=== PATIENT | male | born 1955 | race Caucasian/White ===

== ENCOUNTER 2021-09-25 17:12 | Inpatient (IN) | payer OTHER, MEDICARE, SELFPAY ==
--- NOTE | ~2021-09-25 | MR_ITS ---
EXAMINATION: MR abdomen wo/w con INDICATION: Possible pancreatic mass TECHNIQUE: Coronal SSFSE ARC, WATER:coronal LAVA-FLEX, Coronal 2D FIESTA FatSat, Axial SSFSE BH ARC, Axial 3D DualEcho BH, Axial SSFSE-IR, Axial DWI b=500, Axial 2D FIESTA FatSat, pre and dynamic postco ntrast Axial LAVA ARC, postcontrast Coronal In and Opposed phase LAVA FLEX COMPARISON: CT, 09/25/2021 CONTRAST: Multihance, 11 cc FINDINGS: There is an approximately 2.7 cm hypoenhancing mass in the tail of the pancreas. There is n odularity of the liver surface. A large volume of ascites is present. The spleen, gallbladder, and ad renal glands are normal. There are multiple cysts of the kidneys. No pathologically enlarged abdomina l lymph nodes are identified. There are no dilated loops of bowel. IMPRESSION: 1. 2.7 cm hypoenhancing mass in the tail of the pancreas concerning for adenocarcinoma. Differential includes focal pancreatitis in the proper clinical setting. 2. Cirrhosis with a large volume of ascites. Reviewed, dictated and finalized at location B. IMPRESSION: 1. 2.7 cm hypoenhancing mass in the tail of the pancreas concerning for adenoca rcinoma. Differential includes focal pancreatitis in the proper clinical settin g. 2. Cirrhosis with a large volume of ascites.
--- NOTE | ~2021-09-25 | CT_ITS ---
EXAMINATION: CT abdomen pelvis w con DATE: 09/25/2021 20:04 INDICATION: liver cirrhosis, ascites TECHNIQUE: Computed tomography (CT) of the abdomen and pelvis was performed with 100 mL Omnipaque-300 intravenous contrast. Automated exposure control and iterative reconstruction technique were employe d. The dose-length product was 475.75 mGy-cm. COMPARISON: None. FINDINGS: Lower thorax: Bibasilar scar/atelectasis. Coronary artery calcification. Liver: Fatty infiltrated liver, nodular border, coarse parenchyma. Abdominal varices. Biliary/Gallbladder: Gallbladder is normal. No bile duct dilation. Pancreas: Pancreatic atrophy. Focal low density in the dilated pancreatic tail. Narrowing of the jessica cent splenic vein. Spleen: Enlarged. Adrenals:No mass. Kidneys: No mass, stone, or hydronephrosis. GI tract: Thickened, hyperemic gastric wall involving the fundus and portions of the gastric body. No small or large bowel dilation. Normal appendix. Diverticulosis without diverticulitis. Mesentery/Peritoneum: Diffuse omental thickening. Large volume ascites. Peritoneal enhancement, most evident in the deep pelvis. Retroperitoneum: No mass. Atherosclerotic abdominal aortic and/or arterial calcifications. Pelvis: Pelvic organs are within normal limits. Soft Tissues: Soft tissues and body wall unremarkable. Bones: No acute osseous finding. IMPRESSION: 1. Infiltrated omental fat (also known as omental cake ), most commonly seen with gastric or colonic metastases, less often with tuberculosis peritonitis, lymphoma, or malignant peritoneal mesothelioma . Gastric findings in this patient may be related to lack of distention or infiltration by tumor. 2. Large volume ascites with peritoneal inflammation. 3. Focal low density in the pancreatic tail, may represent acute or resolving pancreatitis (perhaps w ith developing pseudocyst). In the absence of such findings or history, consider nonemergent but time ly MRI of the pancreas to exclude a pancreatic mass. 4. Focal narrowing of the splenic vein may reflect chronic nonocclusive thrombosis versus artifact fr om adjacent pancreatic inflammation or mass. 5. Cirrhosis with portal hypertension. Reviewed, dictated and finalized at location K. IMPRESSION: 1. Infiltrated omental fat (also known as omental cake ), most commonly seen w ith gastric or colonic metastases, less often with tuberculosis peritonitis, ly mphoma, or malignant peritoneal mesothelioma. Gastric findings in this patient may be related to lack of distention or infiltration by tumor. 2. Large volume ascites with peritoneal inflammation. 3. Focal low density in the pancreatic tail, may represent acute or resolving p ancreatitis (perhaps with developing pseudocyst). In the absence of such findin gs or history, consider nonemergent but timely MRI of the pancreas to exclude a pancreatic mass. 4. Focal narrowing of the splenic vein may reflect chronic nonocclusive thrombo sis versus artifact from adjacent pancreatic inflammation or mass. 5. Cirrhosis with portal hypertension.
--- NOTE | ~2021-09-25 | US_ITS ---
EXAMINATION: US paracentesis abd w/image DATE: 09/26/2021 10:07 CDT INDICATION: Ascites. TECHNIQUE: The procedure for an ultrasound-guided paracentesis was discussed with the patient. Risks and benefits were detailed, including risks of bleeding, infection, and pain. The patient verbalize d understanding and agreed to proceed following written consent. A time and out was performed to verify patient's name, date of , and type of procedure. The lef t lower quadrant of the abdomen was prepped and draped in usual manner. 1% lidocaine was used for lo dedra anesthesia. A catheter was inserted into the left lower quadrant under ultrasound guidance into the ascitic fluid. The fluid was removed with vacuum assistance. All needles were removed. The patient tolerated the procedure without immediate complication. FINDINGS: Limited images of the abdomen demonstrates a large amount of ascites. Approximately 5000 c c of yellowish liquid was removed. IMPRESSION: 1. Successful ultrasound-guided paracentesis, with removal of approximately 5000 cc of fluid. Reviewed, dictated and finalized at location A. IMPRESSION: 1. Successful ultrasound-guided paracentesis, with removal of approximately 50 00 cc of fluid.
[2021-09-25 17:28] VITALS: BP 124/85; PULSE 119; RESP 20; O2SAT 93
--- NOTE | 2021-09-25 17:48 | ECG_ITS ---
Measurements Intervals [place] Rate: 111 P: 61 PA: 164 QRS: 56 QRSD: 90 T: 49 QT: 342 QTc: 466 Interpretive Statements SINUS TACHYCARDIA LOW QRS VOLTAGE IN PRECORDIAL LEADS CANNOT RULE OUT SEPTAL INFARCT, AGE INDETERMINATE BORDERLINE ST-T WAVE ABNORMALITY- ANT/INF LEADS ABNORMAL ECG Electronically Signed On 09-25-2021 21:11:02 CDT by Pedro Galdamez D.O.
--- NOTE | 2021-09-25 17:59 | ED.ABDPAIN ---
HPI - Abdominal Pain General Chief Complaint: Abdominal Pain Stated Complaint: acities, weakness, decreased PO intake Time Seen by Provider: 09/25/21 17:37 Source: patient Mode of arrival: ambulatory Limitations: no limitations History of Present Illness HPI narrative: 66 years old white male came from home with his 2 daughters complaining of gradual increase distention of the abdomen over the last 4 weeks. Patient also complaining of difficulty urinating and defecating started at the same time. Patient feels irritable and crampy. History of liver cirrhosis secondary to alcoholism, declined to be on the list for liver transplant at [place]. Also history of hepatitis C, patient is DNR. History of diabetes, hyperlipidemia, COPD, tobacco use and marijuana daily. Last alcohol intake 4 weeks ago. Patient was seen at [facility] numerous of time for the same problem and would like to go there Related Data Allergies Allergy/AdvReac Type Severity Reaction Status Date / Time Penicillins Allergy Anaphylaxis Verified 09/25/21 17:37 Review of Systems Review of Systems: All systems reviewed & are unremarkable except as noted in HPI and below Exam Narrative: General appearance: Well-developed, well-nourished, cachectic Skin: Normal color Head: Normocephalic, nontraumatic Eyes: Clear conjunctiva ENT: Oropharynx normal, ears normal, nose normal Neck: Supple, nontender Chest and respiratory: Diffuse tenderness of the chest bilaterally mainly on the left side, no bruises, no swelling or rash Heart: Tachycardia Abdomen: Distended, diffusely tender, ascites, quiet bowel sounds Vascular: Normal peripheral pulses, normal capillary refill. Musculoskeletal: Normal range of motion, nontender back Neurologic: Alert and oriented ?3, [employer] is normal as tested, no gross motor deficit Course Reevaluation(s) Reevaluation #1: Patient would like to go out to smoke, agreed with the nicotine patch. Initially patient declined to have any abdominal centesis, later agreed to be admitted for that procedure. Daughters at the bedside Date: 09/25/21 Time: 20:48 Consultations Consultation #1: [facility], no bed available at this time Date: 09/25/21 Time: 20:47 Vital Signs Vital signs: Vital Signs Pulse Rate 119 H 09/25/21 17:28 Respiratory Rate 20 09/25/21 17:28 Blood Pressure 124/85 09/25/21 17:28 Pulse Oximetry 93 09/25/21 17:28 Oxygen Delivery Room Air 09/25/21 17:28 Pulse Rate 119 H 09/25/21 17:28 Respiratory Rate 20 09/25/21 17:28 Blood Pressure 124/85 09/25/21 17:28 Pulse Oximetry 93 09/25/21 17:28 Oxygen Delivery Room Air 09/25/21 17:28 MDM - Abdominal Pain Differential Diagnosis Differential diagnosis: Likely abdominal pain, acute appendicitis, constipation, pancreatitis and small bowel obstruction Lab Data Result diagrams: 09/25/21 18:10 09/25/21 18:11 Labs: Lab Results 09/25/21 09/25/21 09/25/21 Range/Units 18:10 18:11 18:11 WBC 11.3 H (4.5-10.0) K/mm3 RBC 4.28 L (4.6-6.20) M/mm3 Hgb 13.1 L (14.0-18.0) g/dL Hct 41.0 L (42.0-52.0) % MCV 95.8 (80-100) fl MCH 30.6 (26-34) pg MCHC 32.0 (32-36) g/dl RDW 17.8 H (11.5-14.5) % Plt Count 346 (150-375) k/mm3 MPV 10.3 (7.4-10.4) fl Immature Gran % (Auto) 3.2 H (0-0.5) % Neut % (Auto) 79.2 H (45.5-73.1) % Lymph % (Auto) 7.5 L (18.3-44.2) % Lane % (Auto) 9.4 H (2.6-8.5) % Eos % (Auto) 0.2 (0-4.4) % Baso % (Auto) 0.5 (0.2-1.2) % Lymph # (Auto) 0.85 L (0.9-3.2) K/mm3 Lane # (Auto) 1.1 H (0.1-0.6) K/mm3 Eos # (Auto) 0.0 (0-0.3) K/mm3 Baso # (Auto) 0.1
[2021-09-25 18:39] LABS: Basophils Absolute Auto 0.1 K/mm3 (0.0-0.1); Basophils Percent Auto 0.5 % (0.2-1.2); Eosinophils Percent Auto 0.2 % (0-4.4); Hemoglobin 13.1 g/dL (14.0-18.0); Immature Granulocyte Absolute 0.36 K/mm3 (0.00-0.031); Immature Granulocyte Percent A 3.2 % (0-0.5); Lymphocytes Absolute Auto 0.85 K/mm3 (0.9-3.2); Lymphocytes Percent Auto 7.5 % (18.3-44.2); Mean Corpuscular Hemoglobin 30.6 pg (26-34); Mean Corpuscular Volume 95.8 fl (80-100); Mean Platelet Volume 10.3 fl (7.4-10.4); Monocytes Absolute Auto 1.1 K/mm3 (0.1-0.6); Monocytes Percent Auto 9.4 % (2.6-8.5); Neutrophils Percent Auto 79.2 % (45.5-73.1); Nucleated Red Blood Cells Perc 0.2 % (0.0-0.2); Platelet Count Result 346 k/mm3 (150-375); Red Blood Count 4.28 M/mm3 (4.6-6.20); Red Cell Distribution Width 17.8 % (11.5-14.5); White Blood Count 11.3 K/mm3 (4.5-10.0)
[2021-09-25 18:49] LABS: INR 1.1; Prothrombin Time 13.6 Seconds (11.1-14.7)
[2021-09-25 18:49] LABS: Ethanol < 10 mg/dL (<10)
[2021-09-25] MEDS: ONDANSETRON INJ 4 MG/2 ML VIAL IV PUSH (18:59)
[2021-09-25 19:08] LABS: Appearance Urine Clear (Clear); Bilirubin Urine 2+ (Negative); Blood Urine Negative (Negative); Color Urine Yellow (Yellow); Glucose Urine UA Negative (Negative); Ketones Urine 2+ mg/dL (Negative); Leukocyte Esterase Ur Negative LEU/UL (Negative); Nitrate Urine Negative (Negative); Protein Urine Negative (Negative); pH Urine 5.5 (5.0-9.0)
[2021-09-25 19:19] LABS: Hyaline Casts Urine 20-29 /lpf; Mucus Urine Rare /lpf; RBC Urine 0-2 /hpf (0-2); Squamous Epithelial Cell Urine Rare /hpf (Few); Transitional Epi Cells Urine Rare /hpf (None Seen)
[2021-09-25 19:21] LABS: Add Urine Microscopic? YES
[2021-09-25 19:30] LABS: Ammonia < 9 umol/L (9-30)
[2021-09-25 19:37] LABS: Alanine Aminotransferase 14 U/L (6-50); Albumin Level 3.5 g/dL (3.5-5.1); Alkaline Phosphatase 161 U/L (38-126); Aspartate Amino Transferase 47 U/L (17-59); Bilirubin,Total 0.7 mg/dL (0.2-1.3); Blood Urea Nitrogen 46 mg/dL (9-20); Calcium 8.4 mg/dL (8.4-10.2); Carbon Dioxide > 40 mmol/L (22-30); Chloride 80 mmol/L (98-107); Estimated CRCL calculation 60 ml/min; Estimated Glomerular Filt Rate > 60; Glucose 151 mg/dL (65-110); Lipase 30 U/L (23-300); Potassium 3.3 mmol/L (3.4-5.0); Sodium 129 mmol/L (137-145)
[2021-09-25 20:30] VITALS: BP 118/80; PULSE 104; RESP 20; O2SAT 91
--- NOTE | 2021-09-25 21:07 | PM.IMHP ---
H&P: HPI History of Present Illness Date/Time: 09/25/21 21:07 Chief Complaint: Abdominal pain Narrative: Patient is a 66-year-old male with past medical history of alcohol cirrhosis presents to ED with complaints of abdominal pain. Patient states he has has end-stage liver disease and has not had paracentesis in the past. He understands poor prognosis. He follows at the [facility] for his medical care. Patient is DNR. He states he stopped drinking alcohol 4 weeks ago. He still smokes 1.5 packs per. In the ED: Abdominal CT scan shows significant ascites and concern for possible pancreatic tail mass and omental caking suggestive of cancer. Ammonia level low less than 9, alcohol less than 10, mild electrolyte abnormalities sodium 129 potassium 3.3. Patient is found to have sinus tachycardia rate 119. With his abdominal ascites, patient likely had relief from paracentesis. Patient is being admitted for acute decompensation of alcohol liver cirrhosis with ascites, has been dyspnea patient be admitted for 2-3 days for ascites workup. Review of Systems Review of Systems: Constitutional: No Fever, No Chills, No Night Sweats, No Fatigue, endorses malaise ENT/Mouth: No Hearing Changes, No Ear Pain, No Nasal Congestion, No Sinus Pain, No Hoarseness, No sore throat, No Rhinorrhea, No Swallowing Difficulty Eyes: No Eye Pain, No Redness, No Vision Changes Cardiovascular: No Chest Pain, No Palpitations, No Dyspnea on Exertion, No Orthopnea, No Claudication, No Edema Respiratory: No Cough, No Sputum, No Wheezing, No Shortness of Breath Gastrointestinal: Endorses abdominal pain and discomfort, nausea. He denies diarrhea constipation. Genitourinary: No Dysuria, No Urinary Frequency, No Hematuria, No Urinary Incontinence, No Urgency Musculoskeletal: No Arthralgias, No Myalgias, No Joint Swelling, No Joint Stiffness, No Back Pain Skin: No Skin Lesions, No Pruritis, No Hair Changes Neuro: No Weakness, No Numbness, No Paresthesias, No Loss of Consciousness, No Syncope, No Dizziness, No Headache Psych: No Anxiety/Panic, No Depression, No Insomnia Heme: No Bruising, No Bleeding Lymph: No Adenopathy Endocrine: No Polyuria, No Polydipsia, No Temperature Intolerance [facility] Past Medical History Medical History (Updated 09/25/21 @ 21:09 by Miquel Hale DO) Alcoholic cirrhosis of liver with ascites Nicotine dependence Family History Family History (Updated 09/25/21 @ 21:09 by Miquel Hale DO) Mother Breast cancer Father Old age Social History Social History (Updated 09/25/21 @ 21:10 by Miquel Hale DO) Social History: Patient lives with his girlfriend, sometimes he drives otherwise depends on his family. Daughter lives nearby. Smoking packs per day: 1.5 Smoking cigarettes per day: 30.0 Smoking status: Current every day smoker Alcohol intake: former Substance use: never Meds Home Medications and Allergies Allergies Allergy/AdvReac Type Severity Reaction Status Date / Time Penicillins Allergy Anaphylaxis Verified 09/25/21 17:37 Vital Signs Vital Signs - 24 hr 09/25/21 17:28 Pulse Rate 119 H Respiratory Rate 20 Blood Pressure 124/85 Pulse Oximetry 93 Oxygen Delivery Room Air Exam Narrative: - GENERAL: Pleasant chronically ill appearing male no acute distress. - EYES: EOMI. Anicteric. - HENT: Moist mucous membranes. Poor dentition. - LUNGS: Clear to auscultation bilaterally, no wheezing, rhonchi, or rales. - CARDIOVASCULAR: Regular rate and rhythm. No murmur. No JVD. - ABDOMEN: Semi-soft, distended, tender on deep palpation. Fluid wave positive - EXTREMITIES: No edema. Very thin extremities. Peripheral pulses 2+. Non-tender. - NEUROLOGIC: No focal neurological deficits. CN II-XII grossly intact. - PSYCHIATRIC: Awake, Alert and oriented x 3. Appropriate mood and affect. - SKIN: Bruising on upper extremities - LYMPH: No cervical lymphadenopathy. H&P: Results Lab
[2021-09-25 21:09] LABS: SARS-CoV-2 RNA PCR Negative
[2021-09-25 21:16] VITALS: BP 117/68; PULSE 100; RESP 20; TEMP 36.6; O2SAT 80
--- NOTE | 2021-09-25 21:16 | PC.NURSE ---
Attempted to do admission, assessment, and med pass on patient. Patient was not cooperative with assessment and only participated in small portion of admission. Assessment charted is based on what patient allowed. This patient was unable to give a complete medical history due to being unsure or just not answering the questions. Once meds were acknowledged, this nurse went into the room to try and administer them, but patient refused and just wants to be left alone . Patient finally agreed to allowing fluids to be hung and continued to refuse everything else. Educated patient on importance of taking medication, but none was given.
[2021-09-25] MEDS: SODIUM CHLORIDE 0.9% IV 1,000 ML 999 ML IV CONT (21:31)
[2021-09-25 21:49] VITALS: BP 120/83; PULSE 106; RESP 16; O2SAT 92
--- NOTE | 2021-09-25 21:51 | PC.NURSE ---
patient being tranferred to floor with IVF infusing
[2021-09-25 22:13] VITALS: BMI 19.8
--- NOTE | 2021-09-25 22:25 | ADMGEN ---
This patient, Zeeshan Mulligan, was admitted to [facility] Room 328-01. Patient/family oriented to hospital policies and general routines including ID bracelet, bed and alarms, visiting hours, pain management, procedures, bathroom and other care routines, personal items, smoking policy, room service/diet, and visiting hours. Information on how to activate the Rapid Response Team has been discussed. Patient/Family are encouraged to report perceived risks to care and to ask questions if they do not understand what they are told or what they should do.
[2021-09-25 23:35] VITALS: BMI 19.4
[2021-09-26] VITALS: BP 117/68; PULSE 100; RESP 20; TEMP 36.6; O2SAT 80
[2021-09-26] MEDS: SODIUM CHLORIDE 0.9% IV 1,000 ML 100 ML IV CONT (00:40)
[2021-09-26 06:00] VITALS: BP 112/73; PULSE 96; RESP 12; TEMP 36.1; O2SAT 91
[2021-09-26 07:05] LABS: Blood Urea Nitrogen 34 mg/dL (9-20); Calcium 7.6 mg/dL (8.4-10.2); Carbon Dioxide > 40 mmol/L (22-30); Chloride 83 mmol/L (98-107); Estimated CRCL calculation 65 ml/min; Estimated Glomerular Filt Rate > 60; Glucose 98 mg/dL (65-110); Potassium 2.9 mmol/L (3.4-5.0); Sodium 131 mmol/L (137-145)
[2021-09-26 08:00] VITALS: O2SAT 93
[2021-09-26 08:08] LABS: Glucose Point of Care 101 mg/dl (65-105)
--- NOTE | 2021-09-26 09:48 | PC.NURSE ---
Patient transported to /S for Paracentesis around 0920 via stretcher
[2021-09-26] MEDS: PANTOPRAZOLE 40 MG TABLET PO (10:29)
[2021-09-26] MEDS: FUROSEMIDE INJ 40 MG/4 ML VIAL IV PUSH (10:29)
[2021-09-26] MEDS: LACTULOSE 20 GM/30 ML UDC PO ×3 (10:29→17:41)
[2021-09-26] MEDS: POTASSIUM CHLORIDE 20 MEQ TABLET.ER PO ×2 (10:30→16:30)
[2021-09-26] MEDS: NICOTINE (*PBKC) 21 MG PATCH 1 PATCH TRANSDERM (10:30)
--- NOTE | 2021-09-26 11:11 | WPDGICN ---
Assessment and Plan Assessment and plan (1) Alcoholic cirrhosis of liver with ascites: Code(s): K70.31 - Alcoholic cirrhosis of liver with ascites Status: Acute Assessment and Plan: he has been a chronic abuser of alcohol and also has a history of hepatitis C As well. He has been told in the past at the [facility] that he has cirrhosis. He states he has not seen anybody about this in the last 3 years, that is his fault (2) Hepatitis C: Code(s): B19.20 - Unspecified viral hepatitis C without hepatic coma Status: Acute Assessment and Plan: this was treated he states with oral medications and the 1 blood test he had afterwards was said to be good he admits that he failed follow-up after that (3) Alcohol abuse: Code(s): F10.10 - Alcohol abuse, uncomplicated Status: Acute Assessment and Plan: he has been truly uses alcohol but states that he stopped a few weeks ago. He began feeling poorly Nevertheless will need to watch for possible signs of of withdrawal syndrome. (4) Pancreatic mass: Code(s): K86.89 - Other specified diseases of pancreas Status: Acute Assessment and Plan: CT today shows a possible mass in the tail of his pancreas. It also shows omental caking suggesting possible peritoneal malignancy I have ordered CEA and also CA 19-9. Is my understanding that the patient is DNR. (5) Diabetes: Code(s): E11.9 - Type 2 diabetes mellitus without complications Status: Acute Assessment and Plan: he has on metformin. He also takes insulin. He states he has not followed up with his physicians at the [facility] for several years, but his last hospitalization there was because of problems with his diabetes Plan we will await results of paracentesis which has just been done. Cytology will be done of course. I will also order tumor markers including CEA and CA 19-9. GI Consult Note Consult date/time: 09/26/21 11:11 Reason for consult: Liver disease, ascites, cirrhosis, hepatitis C HPI: Zeeshan Mulligan is a 66 year old male who presents to the emergency room because of abdominal pain and distension. The patient is known to have cirrhosis. He was found to have a large amount of ascites on the CT scan. He states that he has never had a paracentesis before. He has been told that he has cirrhosis. He usually gets his care at the [facility], but admits that he has not followed up with them for about 3 years. His last hospitalization there was for diabetes. He states that [place] [address] [place]. He was a heavy drinker of alcohol but states he quit a few weeks ago. He does smoke 1.5 packs of cigarettes per day. He states that he was treated for his hepatitis-C and went back and was told that he was cleared but he failed to follow-up after that. Review of Systems Review of Systems: All systems reviewed & are unremarkable except as noted in HPI and below PMFSH Past Medical History Medical History Alcoholic cirrhosis of liver with ascites Nicotine dependence Family History Family History Mother Breast cancer Father Old age Social History Social History Social History: Patient lives with his girlfriend, sometimes he drives otherwise depends on his family. Daughter lives nearby. Smoking packs per day: 1.5 Smoking cigarettes per day: 30.0 Smoking status: Current every day smoker Tobacco type: cigarettes Second hand tobacco smoke exposure: No Alcohol intake: current Substance use: current Substance use type: marijuana Other substance usage details: Very little marijuana when needed for pain Last use: Unknown Spiritual care concerns: No M
[2021-09-26 11:12] LABS: Carcinoembryonic Antigen 2.9 ng/mL (0.0-3.0)
[2021-09-26 11:58] LABS: Appearance Peritoneal Fluid Clear (Clear); Color Peritoneal Fluid Yellow (Colorless); Lymphocytes Peritoneal Fluid 43 %; Macrophages Peritoneal Fluid 35 %; Mesothelial Cells Peritoneal Fluid 2 %; Monocytes Peritoneal Fluid 2 %; Neutrophils Peritoneal Fluid 18 % (0-25); Nucleated Cells Peritoneal Flu 1023 /uL (0-500); RBC Peritoneal Fluid 664 /uL (0-100000); Source Peritoneal Fluid Peritoneal Fluid
[2021-09-26 12:50] LABS: Glucose Point of Care 127 mg/dl (65-105)
--- NOTE | 2021-09-26 12:54 | PM.IMPN ---
Progress Note: A&P Assessment and Plan (1) Pancreatic mass: Code(s): K86.89 - Other specified diseases of pancreas Status: Acute (2) Portal hypertension syndrome: Code(s): K76.6 - Portal hypertension Status: Acute (3) Alcoholic cirrhosis of liver with ascites: Code(s): K70.31 - Alcoholic cirrhosis of liver with ascites Status: Acute Plan # alcohol cirrhosis with ascites -Order placed for ultrasound-guided paracentesis to be done in AM -ascites labs ordered including cytology. -pain control: As needed Tylenol, [place], morphine -patient states he stepped drink alcohol for 4 weeks, no need for CIWA protocol at this time. alcohol level <10 -patient states he has not had paracentesis in the past he was told he may need it. With concerns of malignancy on the CT scan will obtain cytology -will start diuretics, blood pressure is normotensive # abnormal CT scan -patient has incidental finding of distal pancreatic tail lesion, recommendation is for follow-up with MRI of pancreas to rule out mass. Will do so outpatient after paracentesis done -also omental caking found on imaging, concern for malignancy -lipase normal # hypokalemia -potassium 3.3 likely secondary to alcohol abuse and cirrhosis -repleted with 40 mEq potassium chloride # other chronic conditions -nicotine dependence: Nicotine patch available Diet: Regular, NPO midnight for paracentesis DVT prophylaxis: SCDs (no chemoprophylaxis for paracentesis) Code status: Do not resuscitate Disposition: Admission inpatient, likely 2-4 days for paracentesis and cirrhosis workup Additional Plan 09/26/2021 interval history: patient is a 66-year-old male with history of chronic alcohol abuse, hepatitis C for which he was treated at 1 time but 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 and added spironolactone 12.5 mg b.i.d. and will monitor, patient also complained has not had a BM in several will start the patient on lactulose 20 mg q.8 and monitor, will follow-up on paracentesis and the labs and further recommendation to follow. Subjective Date/time seen: 09/26/21 12:54 Chief Complaint: Abdominal pain Narrative: HPI-Patient is a 66-year-old male with past medical history of alcohol cirrhosis presents to ED with complaints of abdominal pain.? Patient states he has has end-stage liver disease and has not had paracentesis in the past.? He understands poor prognosis.? He follows at the [place] for his medical care.? Patient is DNR.? He states he stopped drinking alcohol 4 weeks ago.? He still smokes 1.5 packs per. In the ED: Abdominal CT scan shows significant ascites and concern for possible pancreatic tail mass and omental caking suggestive of cancer.? Ammonia level low less than 9, alcohol less than 10, mild electrolyte abnormalities sodium 129 potassium 3.3.? Patient is found to have sinus tachycardia rate 119.? With his abdominal ascites, patient likely had relief from paracentesis.? Patient is being admitted for acute decompensation of alcohol liver cirrhosis with ascites, has been dyspnea patient be admitted for 2-3 days for ascites workup. 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 and added spironolactone 12.5 mg b.i.d. and will monitor, patient also complained has not had a BM in sev
[2021-09-26 14:05] VITALS: BP 111/78; PULSE 91; RESP 16; TEMP 36.1; O2SAT 96
[2021-09-26 17:30] LABS: Glucose Point of Care 148 mg/dl (65-105)
[2021-09-26] MEDS: POTASSIUM CHLORIDE 20 MEQ TABLET 40 MEQ PO (17:40)
[2021-09-26] MEDS: SPIRONOLACTONE 12.5 MG TABLET PO (17:40)
[2021-09-26] MEDS: FUROSEMIDE 40 MG TABLET PO (17:40)
[2021-09-26 20:51] LABS: Lactate Dehydrogenase 435 U/L (313-618)
[2021-09-26] MEDS: INSULIN GLARGINE (*BKC) 100 UNITS/ML 15 UNITS SUB-Q (21:41)
[2021-09-26] MEDS: traZODone HCL 25 MG TABLET PO (21:41)
[2021-09-26 21:59] LABS: Glucose Point of Care 172 mg/dl (65-105)
[2021-09-26 22:00] VITALS: BP 121/78; PULSE 97; RESP 16; TEMP 37.1; O2SAT 96
[2021-09-27 06:00] VITALS: BP 117/87; PULSE 99; RESP 18; TEMP 36.4; O2SAT 94
[2021-09-27 07:28] LABS: Hemoglobin 12.5 g/dL (14.0-18.0); Mean Corpuscular HGB Conc 33.8 g/dl (32-36); Mean Corpuscular Hemoglobin 31.3 pg (26-34); Mean Corpuscular Volume 92.5 fl (80-100); Mean Platelet Volume 9.7 fl (7.4-10.4); Platelet Count Result 338 k/mm3 (150-375); Red Cell Distribution Width 16.9 % (11.5-14.5); White Blood Count 13.8 K/mm3 (4.5-10.0)
[2021-09-27 07:44] LABS: Glucose Point of Care 112 mg/dl (65-105)
[2021-09-27 07:58] LABS: Alanine Aminotransferase 12 U/L (6-50); Albumin Level 2.8 g/dL (3.5-5.1); Alkaline Phosphatase 162 U/L (38-126); Aspartate Amino Transferase 44 U/L (17-59); Bilirubin,Total 0.4 mg/dL (0.2-1.3); Blood Urea Nitrogen 23 mg/dL (9-20); Calcium 7.7 mg/dL (8.4-10.2); Carbon Dioxide > 40 mmol/L (22-30); Chloride 86 mmol/L (98-107); Estimated CRCL calculation 73 ml/min; Estimated Glomerular Filt Rate > 60; Glucose 116 mg/dL (65-110); Magnesium 1.9 mg/dL (1.6-2.3); Potassium 3.4 mmol/L (3.4-5.0); Sodium 129 mmol/L (137-145)
[2021-09-27] MEDS: FUROSEMIDE 40 MG TABLET PO ×2 (08:55→16:54)
[2021-09-27] MEDS: SPIRONOLACTONE 12.5 MG TABLET PO ×2 (08:55→16:54)
[2021-09-27] MEDS: PANTOPRAZOLE 40 MG TABLET PO (08:56)
[2021-09-27] MEDS: POTASSIUM CHLORIDE 20 MEQ TABLET.ER PO ×2 (08:56→16:54)
[2021-09-27] MEDS: LACTULOSE 20 GM/30 ML UDC PO ×3 (08:56→16:54)
[2021-09-27] MEDS: NICOTINE (*PBKC) 21 MG PATCH 1 PATCH TRANSDERM (08:56)
[2021-09-27 10:12] VITALS: PULSE 87; O2SAT 94
[2021-09-27] MEDS: CLINDAMYCIN 600 MG/D5W 50 ML 600 MG/50 ML PIGGYBACK 100 MG IVPB (11:12)
[2021-09-27 11:44] LABS: Glucose Point of Care 175 mg/dl (65-105)
[2021-09-27 14:00] VITALS: BP 109/76; PULSE 87; RESP 18; TEMP 36.1; O2SAT 93
--- NOTE | 2021-09-27 14:06 | PM.IMPN ---
Progress Note: A&P Assessment and Plan (1) Pancreatic mass: Code(s): K86.89 - Other specified diseases of pancreas Status: Acute (2) Portal hypertension syndrome: Code(s): K76.6 - Portal hypertension Status: Acute (3) Alcoholic cirrhosis of liver with ascites: Code(s): K70.31 - Alcoholic cirrhosis of liver with ascites Status: Acute Plan # alcohol cirrhosis with ascites -Order placed for ultrasound-guided paracentesis to be done in AM -ascites labs ordered including cytology. -pain control: As needed Tylenol, [place], morphine -patient states he stepped drink alcohol for 4 weeks, no need for CIWA protocol at this time. alcohol level <10 -patient states he has not had paracentesis in the past he was told he may need it. With concerns of malignancy on the CT scan will obtain cytology -will start diuretics, blood pressure is normotensive # abnormal CT scan -patient has incidental finding of distal pancreatic tail lesion, recommendation is for follow-up with MRI of pancreas to rule out mass. Will do so outpatient after paracentesis done -also omental caking found on imaging, concern for malignancy -lipase normal # hypokalemia -potassium 3.3 likely secondary to alcohol abuse and cirrhosis -repleted with 40 mEq potassium chloride # other chronic conditions -nicotine dependence: Nicotine patch available Diet: Regular, NPO midnight for paracentesis DVT prophylaxis: SCDs (no chemoprophylaxis for paracentesis) Code status: Do not resuscitate Disposition: Admission inpatient, likely 2-4 days for paracentesis and cirrhosis workup Additional Plan 09/26/2021 interval history: patient is a 66-year-old male with history of chronic alcohol abuse, hepatitis C for which he was treated at 1 time but did not follow-up with fitter tacker, patient states he has not seen any physician for last 3 years presented emergency department with complaint of abdominal pain and swelling patient is found to have liver cirrhosis and ascites, paracentesis is scheduled for today, being diuresed with IV Lasix 40 mg b.i.d. and added spironolactone 12.5 mg b.i.d. and will monitor, patient also complained has not had a BM in several will start the patient on lactulose 20 mg q.8 and monitor, will follow-up on paracentesis and the labs and further recommendation to follow. 09/27/2021 interval history: patient is a 66-year-old male with history of chronic alcohol abuse, stop drinking 4 weeks ago, hepatitis C for which he was treated at 1 time but did not follow-up with fitter tacker, patient states he has not seen any physician for last 3 years presented emergency department with complaint of abdominal pain and swelling patient is found to have liver cirrhosis and ascites, on 09/26 patient had paracentesis and 5 L was removed discussed with pharmacy id, no concerning for SBP will follow-up on culture, being diuresed with IV Lasix 40 mg b.i.d. and added spironolactone 12.5 mg b.i.d. and will monitor, patient also complained has not had a BM in several days, started the patient on lactulose 20 mg q.8, patient had a BM today will reduce lactulose to once a day, and monitor, will follow-up on paracentesis and the labs and further recommendation to follow. Subjective Date/time seen: 09/27/21 14:06 09/27/2021 interval history: patient is a 66-year-old male with history of chronic alcohol abuse, stop drinking 4 weeks ago, hepatitis C for which he was treated at 1 time but did not follow-up with fitter tacker, patient states he has not seen any physician for last 3 years presented emergency department with complaint of abdominal pain and swelling patient is found to have liver cirrhosis and ascites, on 09/26 patient had paracentesis and 5 L was removed discussed with pharmacy id, no concerning for SBP will follow-up on culture, being diuresed with IV Lasix 40 mg b.i.d. and added spironolactone 12.5 mg b.i.d. and will monitor, patient also complained has
[2021-09-27 16:39] LABS: Glucose Point of Care 119 mg/dl (65-105)
[2021-09-27 20:30] VITALS: PULSE 93; RESP 18; O2SAT 93
[2021-09-27 22:00] VITALS: BP 115/85; PULSE 93; RESP 18; TEMP 36; O2SAT 93
[2021-09-27 22:05] LABS: Glucose Point of Care 136 mg/dl (65-105)
[2021-09-27] MEDS: INSULIN GLARGINE (*BKC) 100 UNITS/ML 15 UNITS SUB-Q (22:06)
[2021-09-27] MEDS: traZODone HCL 25 MG TABLET PO (22:08)
[2021-09-28 05:32] VITALS: BP 103/67; PULSE 95; RESP 17; TEMP 36.7; O2SAT 94
[2021-09-28 07:47] LABS: Glucose Point of Care 105 mg/dl (65-105)
[2021-09-28 08:00] VITALS: BP 115/92; PULSE 89; RESP 20; TEMP 36; O2SAT 95
[2021-09-28 08:28] LABS: Hematocrit 37.5 % (42.0-52.0); Hemoglobin 12.7 g/dL (14.0-18.0); Mean Corpuscular HGB Conc 33.9 g/dl (32-36); Mean Corpuscular Hemoglobin 30.9 pg (26-34); Mean Corpuscular Volume 91.2 fl (80-100); Mean Platelet Volume 9.3 fl (7.4-10.4); Platelet Count Result 313 k/mm3 (150-375); Red Blood Count 4.11 M/mm3 (4.6-6.20); White Blood Count 17.6 K/mm3 (4.5-10.0)
[2021-09-28 08:37] LABS: Alanine Aminotransferase 11 U/L (6-50); Albumin Level 2.8 g/dL (3.5-5.1); Alkaline Phosphatase 165 U/L (38-126); Anion Gap 6 mmol/L (8-16); Aspartate Amino Transferase 44 U/L (17-59); Bilirubin,Total 0.5 mg/dL (0.2-1.3); Blood Urea Nitrogen 17 mg/dL (9-20); Calcium 7.7 mg/dL (8.4-10.2); Carbon Dioxide 34 mmol/L (22-30); Chloride 87 mmol/L (98-107); Estimated CRCL calculation 68 ml/min; Estimated Glomerular Filt Rate > 60; Glucose 114 mg/dL (65-110); Magnesium 1.8 mg/dL (1.6-2.3); Potassium 3.6 mmol/L (3.4-5.0); Sodium 127 mmol/L (137-145)
[2021-09-28] MEDS: POTASSIUM CHLORIDE 20 MEQ TABLET.ER PO (11:04)
[2021-09-28] MEDS: SPIRONOLACTONE 12.5 MG TABLET PO (11:04)
[2021-09-28] MEDS: FUROSEMIDE 40 MG TABLET PO ×2 (11:05→16:59)
[2021-09-28] MEDS: NICOTINE (*PBKC) 21 MG PATCH 1 PATCH TRANSDERM (11:05)
[2021-09-28] MEDS: LACTULOSE 20 GM/30 ML UDC PO ×3 (11:05→16:59)
[2021-09-28] MEDS: PANTOPRAZOLE 40 MG TABLET PO (11:05)
[2021-09-28 11:27] LABS: Glucose Point of Care 108 mg/dl (65-105)
[2021-09-28 14:00] VITALS: BP 127/85; PULSE 90; RESP 20; TEMP 36.1; O2SAT 90
--- NOTE | 2021-09-28 15:22 | PM.IMPN ---
Progress Note: A&P Assessment and Plan (1) Pancreatic mass: Code(s): K86.89 - Other specified diseases of pancreas Status: Acute (2) Portal hypertension syndrome: Code(s): K76.6 - Portal hypertension Status: Acute (3) Alcoholic cirrhosis of liver with ascites: Code(s): K70.31 - Alcoholic cirrhosis of liver with ascites Status: Acute Plan # alcohol cirrhosis with ascites -Order placed for ultrasound-guided paracentesis to be done in AM -ascites labs ordered including cytology. -pain control: As needed Tylenol, [place], morphine -patient states he stepped drink alcohol for 4 weeks, no need for CIWA protocol at this time. alcohol level <10 -patient states he has not had paracentesis in the past he was told he may need it. With concerns of malignancy on the CT scan will obtain cytology -will start diuretics, blood pressure is normotensive # abnormal CT scan -patient has incidental finding of distal pancreatic tail lesion, recommendation is for follow-up with MRI of pancreas to rule out mass. Will do so outpatient after paracentesis done -also omental caking found on imaging, concern for malignancy -lipase normal # hypokalemia -potassium 3.3 likely secondary to alcohol abuse and cirrhosis -repleted with 40 mEq potassium chloride # other chronic conditions -nicotine dependence: Nicotine patch available Diet: Regular, NPO midnight for paracentesis DVT prophylaxis: SCDs (no chemoprophylaxis for paracentesis) Code status: Do not resuscitate Disposition: Admission inpatient, likely 2-4 days for paracentesis and cirrhosis workup Additional Plan 09/26/2021 interval history: patient is a 66-year-old male with history of chronic alcohol abuse, hepatitis C for which he was treated at 1 time but did not follow-up with pediatric genetic counselor, patient states he has not seen any physician for last 3 years presented emergency department with complaint of abdominal pain and swelling patient is found to have liver cirrhosis and ascites, paracentesis is scheduled for today, being diuresed with IV Lasix 40 mg b.i.d. and added spironolactone 12.5 mg b.i.d. and will monitor, patient also complained has not had a BM in several will start the patient on lactulose 20 mg q.8 and monitor, will follow-up on paracentesis and the labs and further recommendation to follow. 09/27/2021 interval history: patient is a 66-year-old male with history of chronic alcohol abuse, stop drinking 4 weeks ago, hepatitis C for which he was treated at 1 time but did not follow-up with pediatric genetic counselor, patient states he has not seen any physician for last 3 years presented emergency department with complaint of abdominal pain and swelling patient is found to have liver cirrhosis and ascites, on 09/26 patient had paracentesis and 5 L was removed discussed with pharmacy id, no concerning for SBP will follow-up on culture, being diuresed with IV Lasix 40 mg b.i.d. and added spironolactone 12.5 mg b.i.d. and will monitor, patient also complained has not had a BM in several days, started the patient on lactulose 20 mg q.8, patient had a BM today will reduce lactulose to once a day, and monitor, will follow-up on paracentesis and the labs and further recommendation to follow. 09/28/2021 interval history: patient is a 66-year-old male with history of chronic alcohol abuse, stop drinking 4 weeks ago, hepatitis C for which he was treated at 1 time but did not follow-up with pediatric genetic counselor, patient states he has not seen any physician for last 3 years presented emergency department with complaint of abdominal pain and swelling patient is found to have liver cirrhosis and ascites, on 09/26 patient had paracentesis and 5 L was removed discussed with pharmacy id, no concerning for SBP will follow-up on culture, no growth so far, being diuresed with IV Lasix 40 mg b.i.d. and added spironolactone 12.5 mg b.i.d. patient continue to have ascites will increase his spironolactone to 25 m
[2021-09-28 16:00] VITALS: BP 108/90; PULSE 94; RESP 20; TEMP 36; O2SAT 94
[2021-09-28 16:22] LABS: Glucose Point of Care 158 mg/dl (65-105)
[2021-09-28] MEDS: SPIRONOLACTONE 25 MG TABLET PO (17:03)
[2021-09-28 20:00] VITALS: PULSE 94; RESP 20; O2SAT 94
[2021-09-28] MEDS: INSULIN GLARGINE (*BKC) 100 UNITS/ML 15 UNITS SUB-Q (20:18)
[2021-09-28] MEDS: HYDROcodone/acetaminophen (*CRX) 5-325 MG TABLET 1 TAB PO (20:23)
[2021-09-28] MEDS: traZODone HCL 25 MG TABLET PO (20:24)
[2021-09-28 20:52] LABS: Glucose Point of Care 149 mg/dl (65-105)
[2021-09-28 22:00] VITALS: BP 117/89; PULSE 92; RESP 16; TEMP 36.5; O2SAT 99
[2021-09-29 06:00] VITALS: BP 93/53; PULSE 68; RESP 14; TEMP 36.4; O2SAT 99
[2021-09-29 06:03] LABS: Hematocrit 38.3 % (42.0-52.0); Hemoglobin 12.9 g/dL (14.0-18.0); Mean Corpuscular HGB Conc 33.7 g/dl (32-36); Mean Corpuscular Hemoglobin 30.8 pg (26-34); Mean Corpuscular Volume 91.4 fl (80-100); Mean Platelet Volume 9.7 fl (7.4-10.4); Platelet Count Result 314 k/mm3 (150-375); Red Blood Count 4.19 M/mm3 (4.6-6.20); Red Cell Distribution Width 16.8 % (11.5-14.5); White Blood Count 19.7 K/mm3 (4.5-10.0)
[2021-09-29 06:19] LABS: Alanine Aminotransferase 12 U/L (6-50); Albumin Level 2.7 g/dL (3.5-5.1); Alkaline Phosphatase 163 U/L (38-126); Anion Gap 5 mmol/L (8-16); Aspartate Amino Transferase 52 U/L (17-59); Bilirubin,Total 0.5 mg/dL (0.2-1.3); Blood Urea Nitrogen 15 mg/dL (9-20); Calcium 7.8 mg/dL (8.4-10.2); Carbon Dioxide 32 mmol/L (22-30); Chloride 88 mmol/L (98-107); Estimated CRCL calculation 79 ml/min; Estimated Glomerular Filt Rate > 60; Glucose 112 mg/dL (65-110); Magnesium 1.9 mg/dL (1.6-2.3); Potassium 3.4 mmol/L (3.4-5.0); Sodium 125 mmol/L (137-145)
--- NOTE | 2021-09-29 07:14 | WPDGIPROGNO ---
Progress Note: A&P Assessment and Plan (1) Alcoholic cirrhosis of liver with ascites: Code(s): K70.31 - Alcoholic cirrhosis of liver with ascites Status: Acute Assessment and Plan: he has been a chronic abuser of alcohol and also has a history of hepatitis C As well. He has been told in the past at the [facility] that he has cirrhosis. He states he has not seen anybody about this in the last 3 years, that is his fault 09/29/2021 his weight is increasing. I think we can increase his Aldactone level. A ratio of furosemide to spironolactone of 40-100 is ideal. I did told that he will need to stay on low-sodium diet after discharge. (2) Hepatitis C: Code(s): B19.20 - Unspecified viral hepatitis C without hepatic coma Status: Acute Assessment and Plan: this was treated he states with oral medications and the 1 blood test he had afterwards was said to be good he admits that he failed follow-up after that (3) Alcohol abuse: Code(s): F10.10 - Alcohol abuse, uncomplicated Status: Acute Assessment and Plan: he has been truly uses alcohol but states that he stopped a few weeks ago. He began feeling poorly Nevertheless will need to watch for possible signs of of withdrawal syndrome. (4) Pancreatic mass: Code(s): K86.89 - Other specified diseases of pancreas Status: Acute Assessment and Plan: CT today shows a possible mass in the tail of his pancreas. It also shows omental caking suggesting possible peritoneal malignancy I have ordered CEA and also CA 19-9. Is my understanding that the patient is DNR. 09/30/2019 MRCP is strongly suggestive of a neoplasm in the pancreas. I told that we do not have definite confirmation yet. We are awaiting peritoneal fluid cytology as well as CA 19-9. He was asking about surgery or other a treatment options. We may want to have Oncology see him. Or he may require referral to a pancreatc-biliary surgeon such as Dr. Celso Bazzi at [facility]. (5) Diabetes: Code(s): E11.9 - Type 2 diabetes mellitus without complications Status: Acute Assessment and Plan: he has on metformin. He also takes insulin. He states he has not followed up with his physicians at the [facility] for several years, but his last hospitalization there was because of problems with his diabetes Plan we will await results of paracentesis which has just been done. Cytology will be done of course. I will also order tumor markers including CEA and CA 19-9. CEA has come back normal. CA 19-9 is pending Subjective Date/time seen: 09/29/21 07:14 he states that his abdomen is still quite sore since the paracentesis. It seems a little larger also. He has gained some weight, 61 kg now. He is on Lasix and furosemide but I will increase furosemide so that he will have a 40:100 ratio. explain him that his MRI suggest a pancreatic mass, probably cancer. He was wondering whether he needs to see a cancer specialist or have surgery. Exam Const: General: alert Nutritional Appearance: underweight Orientation/consciousness: patient oriented x3 Resp: Auscultation: clear to auscultation bilaterally Cardio: Rhythm: regular rhythm GI: Inspection: distended and other ( slightly distended) GI Palp: Yes abdominal tenderness ( diffuse) and No Guarding due to palpation present (GI) Auscultation: normal bowel sounds Skin: General skin exam: no jaundice Neuro: General: patient oriented x3 Motor exam (neuro): No Asterixis during motor activity present Objective Data Vital Signs Vital Signs: Vital Signs - 24 hr 09/28/21 08:00 09/28/21 14:00 09/28/21 16:00 Temperature 36.0 C L 36.1 C L 36.0 C L Pulse Rate 89 90 94 Respiratory Rate 20 20 20 Blood Pressure 115/92 H 127/85 108/90 Pulse Oximetry 95 90 94 Oxygen Delivery 09/28/21 20:00 09/28/21 22:00 09/29/21 06:00 Temperature 36.5 C 36.4 C P
[2021-09-29 07:41] LABS: Glucose Point of Care 122 mg/dl (65-105)
[2021-09-29] MEDS: NICOTINE (*PBKC) 21 MG PATCH 1 PATCH TRANSDERM (08:14)
[2021-09-29] MEDS: SPIRONOLACTONE 50 MG TABLET PO (08:16)
[2021-09-29] MEDS: PANTOPRAZOLE 40 MG TABLET PO (08:16)
[2021-09-29] MEDS: LACTULOSE 20 GM/30 ML UDC PO ×2 (08:16→12:02)
[2021-09-29] MEDS: FUROSEMIDE 40 MG TABLET PO (08:16)
--- NOTE | 2021-09-29 14:15 | PM.DS ---
DS: Admitting Diagnosis Discharge Date week are September 29, 2021 Admitting Diagnosis ascites DS: Discharge Diagnosis Discharge Diagnosis (1) Pancreatic mass: Code(s): K86.89 - Other specified diseases of pancreas Status: Acute Assessment and Plan: will need outpatient follow-up. The patient will follow up with Oncology. This information has been given to the patient (2) Portal hypertension syndrome: Code(s): K76.6 - Portal hypertension Status: Acute Assessment and Plan: see plan below (3) Alcoholic cirrhosis of liver with ascites: Code(s): K70.31 - Alcoholic cirrhosis of liver with ascites Status: Acute Assessment and Plan: status post paracentesis. Cytology is pending. Continue diuretic therapy and follow up with GI DS: Summary Hospital Course Hospital Course: patient is a 66-year-old gentleman history of hepatitis and also history of alcoholism. Came on with increasing abdominal girth. Found have abdominal ascites he had a paracentesis was was performed. Final results are currently pending. Does not need any antibiotics currently. Will need a follow-up with GI. Also incidentally a pancreatic tail mass was noted on abdominal imaging. Patient will need follow-up with Oncology regarding planning for this. Patient is fully aware. Time Spent with Patient Time attestation: Total time spent providing and/or coordinating discharge services: Exam Narrative: appears chronically ill older than his age Patient is comfortable, NAD HEENT: eyes are clear and none icteric LUNGS:CTA HEART: RR S1S2 ABD: ascites bowel sounds are faint diffusely tender Lower extremities: no edema SKIN: nonjaundiced Neuro: grossly intact. DS: Data Data Completed and Pending Pending studies at discharge: Pending at discharge 09/25/21 21:17 Cytology [PTH] Routine Labs on day of discharge: Labs from last 24 hours 09/29/21 09/29/21 09/29/21 07:38 05:39 05:39 WBC 19.7 H RBC 4.19 L Hgb 12.9 L Hct 38.3 L MCV 91.4 MCH 30.8 MCHC 33.7 RDW 16.8 H Plt Count 314 MPV 9.7 Sodium 125 L Potassium 3.4 Chloride 88 L Carbon Dioxide 32 H Anion Gap 5 L BUN 15 Creatinine 0.70 Estim Creat Clear Calc 79 Estimated GFR > 60 Glucose 112 H POC Capillary Glucose 122 H Calcium 7.8 L Magnesium 1.9 Total Bilirubin 0.5 AST 52 ALT 12 Alkaline Phosphatase 163 H Total Protein 6.0 L Albumin 2.7 L 09/28/21 09/28/21 20:14 16:18 WBC RBC Hgb Hct MCV MCH MCHC RDW Plt Count MPV Sodium Potassium Chloride Carbon Dioxide Anion Gap BUN Creatinine Estim Creat Clear Calc Estimated GFR Glucose POC Capillary Glucose 149 H 158 H Calcium Magnesium Total Bilirubin AST ALT Alkaline Phosphatase Total Protein Albumin Preliminary micro results at discharge 09/26/21 09:56 Anaerobic Culture - Preliminary Ascites Fluid Aerobic Culture - Preliminary Discharge Plan Discharge Attending physician on discharge: Marino Murray Consulting providers: Antwan Cormier ; Luke Dailey Discharging Clinician: Marino Murray Patient Disposition: Home, Self-Care Activity: no preference Diet: as tolerated Patient Instructions: Antibiotic Form, How to Stop Smoking (DC), Cirrhosis of the Liver (GEN), Ascites (GEN), Paracentesis (GEN) Stand Alone Forms: General Discharge Information Follow-up/Referrals: Luke Dailey MD [Physician] - Antwan Cormier MD [Physician] - [facility] [Primary Care Provider] - Discharge Medications: New furosemide 40 mg Tablet 40 mg PO BID 30 Days Qty: 60 0RF hydrocodone-acetaminophen 5-325 mg Tablet 1 tablet PO TID PRN (Reason: Moderate Pain (4-6)) 5 Days Qty: 15 0RF spironolactone [Aldactone] 50 mg Tablet 50 mg PO BID 30 Days Qt
[2021-09-30 01:13] LABS: Glucose Point of Care 126 mg/dl (65-105)
[2021-09-30 20:57] LABS: CA 19-9 651 U/mL (<34)
[2021-10-01 21:21] LABS: LDH Peritoneal Fluid 402 U/L (<63); Total Protein Peritoneal Fluid 3.7 g/dL
== END 2021-09-29 14:50 | disposition home or self-care (01) | DRG 433 ==
LOC: ANHED 20:37 → ANH3MEDSUR 21:50
PROVIDERS: Family Medicine; Internal Medicine Gastroenterology; Admitting Provider Student in an Organized Health Care Education/Training Program; Emergency Provider Emergency Medicine; Visit Provider Chiropractor
DX: K70.31 Alcoholic cirrhosis of liver with ascites (principal); K76.6 Portal hypertension; R64 Cachexia; Z68.1 Body mass index [BMI] 19.9 or less, adult; Z20.822 Contact with and (suspected) exposure to COVID-19; K86.89 Other specified diseases of pancreas; F10.20 Alcohol dependence, uncomplicated; J44.9 Chronic obstructive pulmonary disease, unspecified; E78.5 Hyperlipidemia, unspecified; E87.6 Hypokalemia; E11.9 Type 2 diabetes mellitus without complications; K72.10 Chronic hepatic failure without coma; Z66 Do not resuscitate; Y90.0 Blood alcohol level of less than 20 mg/100 ml; Z86.19 Personal history of other infectious and parasitic diseases; Z79.84 Long term (current) use of oral hypoglycemic drugs; Z79.4 Long term (current) use of insulin
CPT/HCPCS: 36415; 49083; 74177; 74183; 80048; 80053; 80307; 81001; 82042; 82140; 82378; 82948; 83036; 83615; 83690; 83735; 84157; 85025; 85027; 85610; 86301; 87070; 87075; 87205; 88108; 88305; 88342; 89051; 93005; 96374; 99285; A9270; A9577; C9803; J1815; J1940; J2405; J3480; J7030; J7040; Q9967; U0003; U0005

== ENCOUNTER 2021-10-15 12:56 | Emergency (ER) | payer MEDICARE, OTHER, SELFPAY ==
[2021-10-15] VITALS (40 sets, daily range): BP systolic 110–138; BP diastolic 82–104; PULSE 84–111; RESP 13–26; TEMP 36.6; O2SAT 90–100
--- NOTE | ~2021-10-15 | XR_ITS ---
EXAMINATION: XR chest 1V portable DATE: 10/15/2021 13:47 INDICATION: Low oxygen saturation. TECHNIQUE: A single frontal view of the chest was obtained. COMPARISON: CT abdomen and pelvis 09/25/2021 FINDINGS: There are lucencies at the lung apices, consistent with emphysema. No pleural effusion or p neumothorax. The heart size is normal. Skin folds overlie the chest. There are old healed bilateral r ib fractures. IMPRESSION: 1. Emphysema. Reviewed, dictated and finalized at location A. IMPRESSION: 1. Emphysema.
--- NOTE | ~2021-10-15 | US_ITS ---
EXAMINATION: US paracentesis abd w/image DATE: 10/15/2021 15:46 INDICATION: Ascites. TECHNIQUE: The procedure and its risks, benefits, and alternatives were discussed with the patient. P otential risks discussed included bleeding and infection. The skin was prepped and draped in sterile fashion. 1% lidocaine was used for local anesthesia. Under ultrasound guidance, a 5 Fr catheter with trochar was advanced into the ascites in the left lower quadrant. Fluid was aspirated. The catheter w as removed, and a dressing was applied. There were no immediate complications. FINDINGS: Ultrasound images demonstrate ascites and the catheter within the fluid. IMPRESSION: 1. Successful ultrasound-guided paracentesis yielding 5000 mL of cloudy, dark yellow fluid. Reviewed, dictated and finalized at location A.
--- NOTE | 2021-10-15 13:20 | ECG_ITS ---
Measurements Intervals [place] Rate: 101 P: 76 AR: 158 QRS: 63 QRSD: 81 T: 60 QT: 343 QTc: 445 Interpretive Statements SINUS TACHYCARDIA BASELINE ARTIFACT LOW QRS VOLTAGE IN PRECORDIAL LEADS SEPTAL MYOCARDIAL INFARCTION , PROBABLY OLD ABNORMAL ECG COMPARED TO ECG 09/25/2021 19:12:53 NO SIGNIFICANT CHANGES Electronically Signed On 10-16-2021 13:18:53 CDT by Martin Chávez M.D.
--- NOTE | 2021-10-15 13:23 | PC.NURSE ---
Pt is difficult IV stick. Pt reports he had to have ultrasound IV during his last visit. This RN attempted x1 without success. Renuka RN at bedside attempting IV and blood draw.
[2021-10-15] MEDS: HYDROmorphone HCL INJ (*CRX) 1 MG/ML SYR 0.5 MG IV PUSH (13:45)
[2021-10-15] MEDS: ONDANSETRON INJ 4 MG/2 ML VIAL IV PUSH ×2 (13:45→14:52)
[2021-10-15 13:50] LABS: Basophils Percent Auto 0.2 % (0.2-1.2); Eosinophils Percent Auto 0.1 % (0-4.4); Hematocrit 40.3 % (42.0-52.0); Hemoglobin 13.5 g/dL (14.0-18.0); Immature Granulocyte Percent A 1.1 % (0-0.5); Lymphocytes Absolute Auto 1.07 K/mm3 (0.9-3.2); Lymphocytes Percent Auto 6.1 % (18.3-44.2); Mean Corpuscular HGB Conc 33.5 g/dl (32-36); Mean Corpuscular Hemoglobin 29.6 pg (26-34); Mean Corpuscular Volume 88.4 fl (80-100); Mean Platelet Volume 10.6 fl (7.4-10.4); Monocytes Percent Auto 5.5 % (2.6-8.5); Neutrophils Absolute Auto 15.2 K/mm3 (1.3-6.7); Platelet Count Result 475 k/mm3 (150-375); Red Blood Count 4.56 M/mm3 (4.6-6.20); White Blood Count 17.5 K/mm3 (4.5-10.0)
--- NOTE | 2021-10-15 13:54 | ED.ABDPAIN ---
HPI - Abdominal Pain General Chief Complaint: Abdominal Pain Stated Complaint: ascites - pancreatic cancer Time Seen by Provider: 10/15/21 13:05 Source: patient, family and RN notes reviewed Mode of arrival: ambulatory Limitations: other (poor historia) History of Present Illness HPI narrative: This is a 66 year old male with history of chronic alcohol abuse, cirrhosis with ascites, pancreatic cancer who presents for evaluation of diffuse abdominal pain. Patient was last admitted 3 weeks at [place], and during that visit he had paracentesis, pancreatic mass found. Patient was discharged and followed up with oncologist last week. His brother is at bedside to assist with history. Patient states he has been having diffuse abdominal pain that is worsening. He asked oncologist to order paracentesis but they report it was not order. His brother states riding in car made his pain worse. He denies hematemesis or blood in his stool. He denies chest pain, sob, but he has a cough when his pain worsens. He He denies fever or chills. He states he is DNR. He is unsure of what treatment recommendations are given. He states he does not want cancer treatment. He states I'm done . He just wants to be comfort. Related Data Home Medications Medication Instructions Recorded Confirmed atorvastatin 20 mg tablet 20 mg PO HS 09/25/21 09/25/21 insulin glargine 100 unit/mL (3 15 unit subcut HS 09/25/21 09/25/21 mL) subcutaneous pen metformin 1,000 mg tablet 500 mg BID Blood Sugar Control 09/25/21 09/25/21 methocarbamol 750 mg HS Muscle relaxant 09/25/21 09/25/21 omeprazole 20 mg capsule,delayed 20 mg PO DAILY 09/25/21 09/25/21 release trazodone 100 mg tablet 100 mg PO HS Mood or Sleep 09/25/21 09/25/21 Allergies Allergy/AdvReac Type Severity Reaction Status Date / Time Penicillins Allergy Anaphylaxis Verified 09/25/21 17:37 Review of Systems Review of Systems: All systems reviewed & are unremarkable except as noted in HPI and below Constitutional: Constitutional: Denies chills, Denies fatigue and Denies fever(s) Cardiovascular: Cardiovascular: Denies chest pain Respiratory: Respiratory: Denies chest congestion, Reports cough and Denies dyspnea Gastrointestinal: Gastrointestinal: Reports abdominal pain, Reports diarrhea and Reports nausea Genitourinary: Genitourinary: Denies hematuria, Denies oliguria and Denies urinary frequency Musculoskeletal: Musculoskeletal: Denies back pain PMFSH Past Medical History Medical History Alcoholic cirrhosis of liver with ascites Nicotine dependence Family History Family History Mother Breast cancer Father Old age Social History Social History Social History: Patient lives with his girlfriend, sometimes he drives otherwise depends on his family. Daughter lives nearby. Smoking packs per day: 1.5 Smoking cigarettes per day: 30.0 Smoking status: Current every day smoker Tobacco type: cigarettes Second hand tobacco smoke exposure: No Alcohol intake: current Substance use: current Substance use type: marijuana Other substance usage details: Very little marijuana when needed for pain Last use: Unknown Spiritual care concerns: No Exam Const: General: alert and ill appearing Nutritional Appearance: thin Orientation/consciousness: patient oriented x3 HENMT: Head: normal to inspection Mouth: Yes lip normal and Yes moist mucous membranes Eyes: Pupils: Equal, round and reactive pupils present EOM: EOMs intact bilaterally Resp: Effort & Inspection: normal respiratory effort Auscultation: clear to auscultation bilaterally Cardio: Rate: tachycardic Rhythm: regular rhythm Heart sounds: Murmur heart sound present GI: Inspection: distended GI Palp: Yes Tenderness to palpation present (GI) (di
[2021-10-15 13:59] LABS: Lactic Acid Reflex 2.1 mmol/L (0.7-2.0)
[2021-10-15 14:00] LABS: Ammonia 10 umol/L (9-30); Ethanol < 10 mg/dL (<10); INR 1.1; Prothrombin Time 13.3 Seconds (11.1-14.7)
--- NOTE | 2021-10-15 14:10 | PC.NURSE ---
Pt had episode of dark emesis.
[2021-10-15 14:26] LABS: SARS-CoV-2 RNA PCR Negative
[2021-10-15 14:29] LABS: Alanine Aminotransferase 20 U/L (6-50); Albumin Level 3.6 g/dL (3.5-5.1); Alkaline Phosphatase 271 U/L (38-126); Aspartate Amino Transferase 71 U/L (17-59); Bilirubin,Total 0.7 mg/dL (0.2-1.3); Blood Urea Nitrogen 76 mg/dL (9-20); Calcium 8.5 mg/dL (8.4-10.2); Carbon Dioxide > 40 mmol/L (22-30); Chloride 77 mmol/L (98-107); Estimated CRCL calculation 29 ml/min; Estimated Glomerular Filt Rate 36; Glucose 113 mg/dL (65-110); Lipase 127 U/L (23-300); Magnesium 2.7 mg/dL (1.6-2.3); Potassium 4.1 mmol/L (3.4-5.0); Sodium 129 mmol/L (137-145)
--- NOTE | 2021-10-15 14:55 | PC.NURSE ---
Pt left with ultrasound for paracentesis.
--- NOTE | 2021-10-15 15:13 | PCRCNOTE ---
PER DR. KINNEY WAIT ON ABG UNTIL PT. IS DONE WITH PROCEDURE.
[2021-10-15] MEDS: PANTOPRAZOLE SODIUM IV 40 MG VIAL IV PUSH (15:44)
[2021-10-15] MEDS: SODIUM CHLORIDE 0.9% IV 1,000 ML 999 ML IV CONT (15:44)
--- NOTE | 2021-10-15 16:08 | PC.NURSE ---
Care coordination at bedside.
[2021-10-15 16:44] LABS: Appearance Peritoneal Fluid Cloudy (Clear); Color Peritoneal Fluid Yellow (Colorless); Source Peritoneal Fluid Peritoneal Fluid
[2021-10-15 16:45] LABS: Nucleated Cells Peritoneal Flu 362 /uL (0-500); RBC Peritoneal Fluid 1144 /uL (0-100000)
[2021-10-15 16:46] LABS: Reflex Lactic Acid Yes or No Add Lactic
[2021-10-15 16:56] LABS: Lymphocytes Peritoneal Fluid 67 %; Macrophages Peritoneal Fluid 25 %; Neutrophils Peritoneal Fluid 8 % (0-25)
--- NOTE | 2021-10-15 17:05 | PCCCNOTE ---
met with patient bedside, patient is alert and oriented x 4, I ADL and lives with family. patient's daughter and brother are at bedside. patient is newly diagnosis with pancreatic cancer and would like to sign up with hospice care at this time. patient agreeable to a referral to [facility], cc faxed referral and spoke with leana and angélica. Angélica is here now to eval patient and sign consents. cc will continue to follow for any needs that may arise.
[2021-10-15 17:28] LABS: Appearance Urine Clear (Clear); Bilirubin Urine Negative (Negative); Blood Urine Negative (Negative); Color Urine Yellow (Yellow); Glucose Urine UA Negative (Negative); Ketones Urine Negative (Negative); Leukocyte Esterase Ur Negative LEU/UL (Negative); Nitrate Urine Negative (Negative); Protein Urine Trace mg/dL (Negative); Specific Grav Ur 1.015 (1.001-1.035); Urobilinogen Urine 0.2 mg/dL (<2.0)
[2021-10-15 17:32] LABS: Bacteria Urine Trace /hpf; Hyaline Casts Urine 20-29 /lpf; Mucus Urine Rare /lpf; RBC Urine 0-2 /hpf (0-2); WBC Urine 0-3 /hpf
[2021-10-15 17:33] LABS: Add Urine Microscopic? YES
--- NOTE | 2021-10-15 17:42 | PC.NURSE ---
Mónica at bedside to speak with pt.
--- NOTE | 2021-10-15 18:37 | PC.NURSE ---
Mónica still at bedside speaking with pt and family at this time.
--- NOTE | 2021-10-15 18:39 | PC.NURSE ---
[facility] staff states patient can be discharged home at this time. Nurse will follow up with patient in the morning.
[2021-10-19 21:26] LABS: Glucose Peritoneal Fluid 39 mg/dL; LDH Peritoneal Fluid 782 U/L (<63); Total Protein Peritoneal Fluid 3.7 g/dL
[2021-10-21 10:17] LABS: Albumin Peritoneal Fluid 1.5 g/dL
== END 2021-10-15 19:15 | disposition hospice, home (50) ==
PROVIDERS: Emergency Provider General Practice
DX: C25.9 Malignant neoplasm of pancreas, unspecified (principal); K70.31 Alcoholic cirrhosis of liver with ascites; Z20.822 Contact with and (suspected) exposure to COVID-19; F10.10 Alcohol abuse, uncomplicated; Z66 Do not resuscitate; F17.210 Nicotine dependence, cigarettes, uncomplicated; J43.9 Emphysema, unspecified; R00.0 Tachycardia, unspecified; R94.31 Abnormal electrocardiogram [ECG] [EKG]; Z79.84 Long term (current) use of oral hypoglycemic drugs; Z79.899 Other long term (current) drug therapy
CPT/HCPCS: 36415; 49083; 71045; 80053; 80307; 81001; 82042; 82140; 82945; 83605; 83615; 83690; 83735; 84157; 85025; 85610; 85730; 87070; 87075; 87205; 88108; 88305; 88342; 89051; 93005; 96361; 96374; 96375; 96376; 99284; C9113; C9803; J1170; J2405; J7030; U0003; U0005